=== PATIENT | female | born 1995 | race Caucasian/White ===

== ENCOUNTER 2020-07-16 13:19 | Emergency (ER) | payer MEDICAID ==
[~2020-07-16] VITALS: Ht 157.5 cm; Wt 84.4 kg
[2020-07-16 13:38] VITALS: BP 129/85; Ht 157.5 cm; Wt 84.4 kg
== END 2020-07-16 14:02 | disposition home or self-care (01) ==
LOC: ED 13:19
DX: K04.7 Periapical abscess without sinus (principal); Z90.89 Acquired absence of other organs; Z90.49 Acquired absence of other specified parts of digestive tract; Z98.890 Other specified postprocedural states
CPT/HCPCS: J7512